=== PATIENT | female | born 1980 | race Caucasian/White ===

== ENCOUNTER 2023-06-21 14:24 | Emergency (ER) | payer MEDICAID ==
[~2023-06-21] VITALS: Ht 147.3 cm; Wt 45.0 kg
[2023-06-21 14:36] VITALS: O2SAT 99
[2023-06-21 18:46] LABS: BASOPHILS % 0.3 % (0.0-2.0); CHLORIDE 103 mEq/L (98-107); EOSINOPHILS % 0.1 % (0.0-5.0); HEMATOCRIT. 34.9 % (36.0-48.0); HEMOGLOBIN. 11.8 g/dL (12.0-16.0); INDEX HEMOLYSI 1 (1-3); INDEX ICTERIC 1 (1-4); INDEX LIPEMIC 1 (1-3); MEAN CORPUSCULAR HEMOGLOBIN 29.6 pg (28.0-32.0); MEAN CORPUSCULAR VOLUME 87.1 fL (81.0-99.0); MEAN PLATELET VOLUME 9.5 fl (7.4-10.4); MONOCYTES % 8.3 % (2.0-8.0); NEUTROPHILS % 78.3 % (40.0-76.0); PLATELET 259 x1000/uL (130-400); POTASSIUM 4.4 mEq/L (3.5-5.1); SODIUM 133 mEq/L (136-145); WHITE BLOOD COUNT 8.1 x1000/uL (4.5-11.0)
[2023-06-21 18:53] LABS: ALANINE AMINOTRANSFERASE 22 IU/L (13-61); ALBUMIN 3.7 g/dL (3.4-5.0); ASPARTATE AMINOTRANSFERASE 16 IU/L (15-37); BILIRUBIN TOTAL 0.4 mg/dL (0.1-1.0); CALCIUM 9.1 mg/dL (8.5-10.1); CARBON DIOXIDE 24 mEq/L (21-32); CREATININE 0.5 mg/dL (0.6-1.3); GLUCOSE 110 mg/dL (70-105); PROTEIN TOTAL 8.3 g/dL (6.0-8.3); UREA NITROGEN BLOOD 9 mg/dL (7-21)
[2023-06-21 19:32] LABS: HCG SCREEN NEGATIVE
[2023-06-21 20:10] LABS: UCG SCREEN NEGATIVE
[2023-06-21 20:11] LABS: CLARITY URINE CLEAR (CLEAR); COLOR URINE YELLOW (YELLOW); GLUCOSE URINE NEGATIVE (NEGATIVE); KETONES URINE 3+ (NEGATIVE); LEUKOCYTE ESTERASE URINE NEGATIVE (NEGATIVE); NITRITE URINE NEGATIVE (NEGATIVE); OCCULT BLOOD URINE NEGATIVE (NEGATIVE); PROTEIN URINE NEGATIVE (NEGATIVE); SPECIFIC GRAVITY URINE 1.012 (1.005-1.030); UCG QC LOT# 614861; UROBILINOGEN URINE 0.2 E.U./dL (0.2-1.0)
[2023-06-21] MEDS ORDERED: MORPHINE SULFATE 4 MG/ML CPJ (NOT FOR IM USE) IV ONE (22:45)
[2023-06-21] MEDS ORDERED: ONDANSETRON HCL 4MG/2ML INJ IV ONE (22:45)
[2023-06-21 22:52] VITALS: TEMP 98.6
[2023-06-22] MEDS ORDERED: MORPHINE SULFATE 4 MG/ML CPJ (NOT FOR IM USE) IV ONE (00:30)
[2023-06-22] MEDS ORDERED: FAMOTIDINE 20MG/2ML VIAL IV ONE (00:45)
[2023-06-22] MEDS ORDERED: SODIUM CHLORIDE 0.9% 1,000 ML IV ONE (00:45)
[2023-06-22] MEDS ORDERED: MAGNESIUM/ALUMINUM HYDROXIDE/SIMETHICONE 30ML UDC PO ONE (00:45)
[2023-06-22] MEDS ORDERED: MAG-55 MT (02:44)
[2023-06-22] MEDS ORDERED: IBUP-2028 MT (02:44)
[2023-06-22] MEDS ORDERED: TOPUD PO (02:44)
[2023-06-22] MEDS ORDERED: FAMO40TA70 MT (02:44)
[2023-06-22 03:41] VITALS: BP 117/72; PULSE 81; RESP 15
[2023-06-22] MEDS ORDERED: IOHEXOL-300 100 ML BOTTLE ONE (06:31)
== END 2023-06-22 03:41 | disposition home or self-care (01) ==
LOC: ER 14:24
DX: R10.11 Right upper quadrant pain (principal)
CPT/HCPCS: 80053; 81003; 81025; 84703; 83690; 85025; 36415; 76705; 96374; 96375 ×2; 99285; 74177; 96361; 96376; J2405; J2270 ×2; Q9967; J3490; J7030; Z7610